=== PATIENT | female | born 1960 | race Two or more races ===

== ENCOUNTER → 2019-09-11 | Day surgery (SDC) | payer OTHER | END | disposition home or self-care (01) | LOC: ADM 09-07 10:00 → CIR.AMB 06:47 → ADM 10:00 → CIR.AMB 10:00 | PROVIDERS: ATTEND Obstetrics & Gynecology | DX: N95.0 Postmenopausal bleeding (principal) ==

== ENCOUNTER 2020-07-22 11:30 | Inpatient (IN) | payer OTHER ==
[~2020-07-22] VITALS: Ht 165.1 cm; Wt 72.6 kg
[2020-07-31] MEDS ORDERED: IBUPROFEN800 MG PO (06:55)
[2020-07-31] MEDS ORDERED: POLY119PG PO (06:55)
[2020-07-31] MEDS ORDERED: NEURONTIN600 MG PO (06:55)
[2020-07-31] MEDS ORDERED: SIMETHICONE125 M1 PO (06:55)
[2020-08-01] MEDS ORDERED: PYRIDIUM100 M1 PO (23:52)
[2020-08-01] MEDS ORDERED: MACROBID 100 M100 MG PO (23:52)
== END 2020-07-31 08:32 | disposition home or self-care (01) | DRG 743 ==
LOC: OB/GYN 07-29 06:00 → O/R 07-29 06:00 → OB/GYN 07-29 08:30 → O/R 07-29 12:09 → OB/GYN 07-29 12:10
PROVIDERS: ADMIT Obstetrics & Gynecology; ATTEND Obstetrics & Gynecology
PROC: 0UT20ZZ Resection of Bilateral Ovaries, Open Approach (ICD-10-PCS; 2020-07-29)
PROC: 0UT70ZZ Resection of Bilateral Fallopian Tubes, Open Approach (ICD-10-PCS; 2020-07-29)
PROC: 0UT90ZZ Resection of Uterus, Open Approach (ICD-10-PCS; principal; 2020-07-29 08:30)
DX: D25.1 Intramural leiomyoma of uterus (principal); D25.2 Subserosal leiomyoma of uterus; N72 Inflammatory disease of cervix uteri; N80.0 Endometriosis of uterus; N83.292 Other ovarian cyst, left side; N83.291 Other ovarian cyst, right side; N95.0 Postmenopausal bleeding

== ENCOUNTER 2020-08-01 20:38 | Emergency (ER) | payer OTHER ==
[~2020-08-01] VITALS: Ht 165.1 cm; Wt 72.6 kg
[~2020-08-01 20:38] MED LIST: IBUPROFEN800 MG PO; NEURONTIN600 MG PO; POLY119PG PO; SIMETHICONE125 M1 PO
[2020-08-01] MEDS ORDERED: MACROBID 100 M100 MG PO (23:52)
[2020-08-01] MEDS ORDERED: PYRIDIUM100 M1 PO (23:52)
== END 2020-08-02 01:07 | disposition home or self-care (01) ==
LOC: ER 20:38
DX: R30.0 Dysuria (principal); R50.9 Fever, unspecified

== ENCOUNTER 2020-08-16 11:25 | Inpatient (IN) | payer OTHER ==
[~2020-08-16] VITALS: Ht 165.1 cm; Wt 72.6 kg
[~2020-08-16 11:25] MED LIST changes: +MACROBID 100 M100 MG PO; +PYRIDIUM100 M1 PO
[2020-08-22] MEDS ORDERED: CLEOCIN HCL300 MG PO (07:05)
== END 2020-08-22 10:28 | disposition home or self-care (01) | DRG 863 ==
LOC: ER 11:25 → OB/GYN 16:04 → SEC-K 16:04 → OB/GYN 20:33
PROVIDERS: ADMIT Obstetrics & Gynecology; ATTEND Obstetrics & Gynecology
DX: T81.49XA Infection following a procedure, other surgical site, initial encounter (principal); Z90.710 Acquired absence of both cervix and uterus; Z20.822 Contact with and (suspected) exposure to COVID-19